=== PATIENT | female | born 1945 | race African-American/Black ===

== ENCOUNTER 2024-04-04 18:42 | Emergency (ER) | payer OTHER, MEDICAID ==
[~2024-04-04] VITALS: Ht 175.3 cm; Wt 73.0 kg
[2024-04-04 18:47] VITALS: O2SAT 98
[2024-04-04] MEDS ORDERED: TOPUD PO (19:53)
[2024-04-04] MEDS: ACETAMINOPHEN 325MG TABLET PO ONE (20:20)
[2024-04-04 20:24] VITALS: BP 129/74; PULSE 80; RESP 20; TEMP 98
== END 2024-04-04 20:24 | disposition home or self-care (01) ==
LOC: ER 18:42
DX: M25.562 Pain in left knee (principal); M79.672 Pain in left foot; M79.10 Myalgia, unspecified site; I10 Essential (primary) hypertension; Z88.0 Allergy status to penicillin
CPT/HCPCS: 73090; 73560; 73630; 99284